=== PATIENT | female | born 1950 | race Caucasian/White ===

== ENCOUNTER 2020-08-20 10:39 | Outpatient (CLI) | payer MEDICARE, SELFPAY ==
--- NOTE | 2020-08-20 10:50 | MM_ITS ---
WS: [id number] DIAGNOSTIC BILATERAL DIGITAL MAMMOGRAM WITH CAD HISTORY: HX OF BREAST CA COMPARISON: 06/28/2019, 06/03/2017 and 08/07/2015 TECHNIQUE: Bilateral craniocaudad, mediolateral oblique, and mediolateral views are submitted. Comput er aided detection utilized. Breast composition: The breasts are heterogeneously dense, which may obscure small masses. Volume los s and diffuse trabecular thickening throughout the LEFT breast. There are benign dystrophic calcifica tions in each breast. As compared to several prior examinations there has been no change. No masses a re identified. No suspicious grouping of calcifications. MM/[place] [id number] IMPRESSION: BI-RADS: 2-Benign FOLLOW UP: 1 Year Follow-up
== END 2020-08-20 10:40 | disposition home or self-care (01) ==
LOC: RADSHAW 10:43
PROVIDERS: PCP Family Medicine; Visit Provider Family Medicine
DX: Z85.3 Personal history of malignant neoplasm of breast (principal)
CPT/HCPCS: 77066

== ENCOUNTER → 2020-08-26 10:40 | Outpatient (BNVA) | payer MEDICARE, SELFPAY | PROVIDERS: PCP Family Medicine; Visit Provider Internal Medicine Cardiovascular Disease | DX: I50.22 Chronic systolic (congestive) heart failure (principal); R06.02 Shortness of breath; E78.2 Mixed hyperlipidemia; I50.33 Acute on chronic diastolic (congestive) heart failure; E78.5 Hyperlipidemia, unspecified | CPT/HCPCS: 80048; 80061; 83880 ==

== ENCOUNTER → 2021-01-09 10:22 | Outpatient (BNVA) | payer MEDICARE, SELFPAY | PROVIDERS: PCP Family Medicine; Visit Provider Nurse Practitioner | DX: I42.0 Dilated cardiomyopathy (principal) | CPT/HCPCS: 84443 ==

== ENCOUNTER → 2022-01-22 09:12 | Outpatient (BNVA) | payer MEDICARE, SELFPAY | PROVIDERS: PCP Family Medicine; Visit Provider Nurse Practitioner | DX: E03.9 Hypothyroidism, unspecified (principal); E78.2 Mixed hyperlipidemia | CPT/HCPCS: 80053; 80061; 84443 ==

== ENCOUNTER 2022-01-26 11:30 | Outpatient (CLI) | payer MEDICARE, SELFPAY ==
--- NOTE | 2022-01-26 11:34 | MM_ITS ---
WS: [id number] DIAGNOSTIC BILATERAL 3D TOMOSYNTHESIS DIGITAL MAMMOGRAM WITH CAD HISTORY: HX OF BREAST CA COMPARISON: 08/20/2020 and 06/28/2019 TECHNIQUE: Bilateral craniocaudad, mediolateral oblique, and mediolateral views are submitted. Comput er aided detection utilized. Breast composition: There are scattered areas of fibroglandular density. Volume loss and diffuse trab ecular thickening throughout the LEFT breast is stable. Dystrophic coarse calcification at 12:00, pos terior LEFT breast. There are additional benign-appearing calcifications within each breast. No new a glendy of calcification or suspicious mass developing. Stable posttreatment changes in the LEFT breast. MM/[place] [id number] IMPRESSION: BI-RADS: 2-Benign FOLLOW UP: 1 Year Follow-up
== END 2022-01-26 11:31 | disposition home or self-care (01) ==
LOC: RAD 11:32
PROVIDERS: PCP Family Medicine; Visit Provider Nurse Practitioner
DX: Z85.3 Personal history of malignant neoplasm of breast (principal)
CPT/HCPCS: 77062

== ENCOUNTER → 2022-02-12 15:27 | Outpatient (BNVA) | payer MEDICARE, SELFPAY | PROVIDERS: PCP Family Medicine; Visit Provider Internal Medicine Cardiovascular Disease | DX: I42.0 Dilated cardiomyopathy (principal); I11.0 Hypertensive heart disease with heart failure; E78.2 Mixed hyperlipidemia; I34.0 Nonrheumatic mitral (valve) insufficiency; I50.22 Chronic systolic (congestive) heart failure; Z79.82 Long term (current) use of aspirin | CPT/HCPCS: 99214 ==

== ENCOUNTER 2022-03-10 08:41 | Outpatient (CLI) | payer MEDICARE, SELFPAY ==
--- NOTE | 2022-03-10 08:30 | USCV_ITS ---
Debbie Crespo Age: 71 Gender: F : 1950 Exam Date: 03/10/2022 09:09 Ordering Phys: Gianni Saul MD ([email or web address]) Technologist: Mo Aldana Exam Location: [facility] [place] Indication: cardiomyo BP: 116 / 65 HR: 56 Rhythm: Sinus Technical Quality: Adequate MEASUREMENTS (Male / Female) Normal Values 2D ECHO LV Diastolic Diameter PLAX 5.2 cm 4.2 - 5.9 / 3.9 - 5.3 cm LV Systolic Diameter PLAX 4.7 cm IVS Diastolic Thickness 1.1 cm 0.6 - 1.0 / 0.6 - 0.9 cm IVS Systolic Thickness 1.0 cm LVPW Diastolic Thickness 1.1 cm 0.6 - 1.0 / 0.6 - 0.9 cm LVPW Systolic Thickness 1.2 cm LVOT Diameter 2.1 cm LV Ejection Fraction 2D Teich 22.9 % LV Ejection Fraction MOD 2C 33.7 % LV Ejection Fraction 2C AL 34.7 % LA Diameter 4.1 cm Aorta at Sinotubular Diameter 2.5 cm M-MODE Aortic Annulus Diameter 3.2 cm LA Ao Ratio MM 1.3 MV E Point Septal Separation 2.4 cm DOPPLER AV Peak Velocity 140.0 cm/s LVOT Peak Velocity 92.0 cm/s AV Area Cont Eq vti 2.4 cm squared AV Area Cont Eq pk 2.2 cm squared MV Area PHT 5.0 cm squared Mitral E to A Ratio 3.0 MV E' Velocity 62.5 cm/s Mitral E to MV E' Ratio 11.8 Mitral E to LV E' Lateral Ratio 8.1 Mitral E to LV E' Septal Ratio 21.7 TR Peak Velocity 327.0 cm/s TR Peak Gradient 42.8 mmHg TV Peak E Velocity 151.0 cm/s Right Atrial Pressure 3.0 mmHg Pulmonary Artery Systolic Pressu 45.8 mmHg PV Peak Velocity 86.0 cm/s FINDINGS Left Ventricle Diffuse hypokinesia of the left ventricle with ejection fraction of 34% Mildly dilated LV cavity. Right Ventricle The right ventricle is normal in size and function. Right Atrium The right atrium is normal in size. Left Atrium Mildly increased left atrial size. Mitral Valve Moderately severe mitral valve regurgitation. Aortic Valve Tricuspid with no gross abnormalities Tricuspid Valve No gross abnormalities noted . Pulmonic Valve No gross abnormalities noted Pericardium Normal pericardium without effusion. Aorta Normal ascending aorta dimension. CONCLUSIONS Diffuse hypokinesia of the left ventricle with an ejection fraction of 34% Mildly dilated LV cavity. Moderately severe mitral valve regurgitation. No intracardiac masses or pericardial effusion. Compared to the study from 06/04/2016, there is worsening of the LV systolic function and the mitral valve regurgitation. Dr Gianni Saul MD [facility] (Electronically Signed) Final Date: 10 Mar 2022 16:19 S
== END 2022-03-10 08:42 | disposition home or self-care (01) ==
LOC: RAD 08:43
PROVIDERS: PCP Family Medicine; Visit Provider Internal Medicine Cardiovascular Disease
DX: I50.22 Chronic systolic (congestive) heart failure (principal); R06.00 Dyspnea, unspecified
CPT/HCPCS: 93306

== ENCOUNTER → 2022-05-13 12:46 | Outpatient (BNVA) | payer MEDICARE, SELFPAY | PROVIDERS: PCP Family Medicine; Visit Provider Internal Medicine Cardiovascular Disease | DX: I50.22 Chronic systolic (congestive) heart failure (principal); E78.2 Mixed hyperlipidemia; I34.0 Nonrheumatic mitral (valve) insufficiency; N18.2 Chronic kidney disease, stage 2 (mild); I42.0 Dilated cardiomyopathy; E03.9 Hypothyroidism, unspecified | CPT/HCPCS: 36415; 80048; 83880; 99214 ==

== ENCOUNTER → 2022-06-10 12:57 | Outpatient (BNVA) | payer MEDICARE, SELFPAY | PROVIDERS: PCP Family Medicine; Visit Provider Nurse Practitioner Family | DX: I50.22 Chronic systolic (congestive) heart failure (principal) | CPT/HCPCS: 99214 ==

== ENCOUNTER → 2022-08-19 15:13 | Outpatient (BNVA) | payer MEDICARE, SELFPAY | PROVIDERS: PCP Family Medicine; Visit Provider Internal Medicine Cardiovascular Disease | DX: I50.22 Chronic systolic (congestive) heart failure (principal); E78.2 Mixed hyperlipidemia; I34.0 Nonrheumatic mitral (valve) insufficiency; N18.2 Chronic kidney disease, stage 2 (mild); I42.0 Dilated cardiomyopathy; R06.02 Shortness of breath | CPT/HCPCS: 36415; 80048; 83880; 99214 ==

== ENCOUNTER 2022-09-23 09:54 | Outpatient (CLI) | payer MEDICARE, SELFPAY ==
--- NOTE | 2022-09-23 10:15 | USCV_ITS ---
Debbie Crespo Age: 72 Gender: F : 1950 Exam Date: 09/23/2022 10:59 Ordering Phys: Uma Roberts Technologist: AMBER Exam Location: [facility] – [place] Indication: LOW EF BP: 108 / 68 HR: 72 Rhythm: Sinus Technical Quality: Adequate MEASUREMENTS (Male / Female) Normal Values 2D ECHO LVOT Diameter 2.0 cm LV Ejection Fraction MOD 2C 30.2 % LV Ejection Fraction 2C AL 28.4 % LA Diameter 3.4 cm LA Width 3.7 cm LA Height 4.9 cm RA Width 2.9 cm RA Height 3.8 cm Aorta at Sinotubular Diameter 2.5 cm IVC Diameter 1.5 cm M-MODE Aortic Annulus Diameter 2.9 cm LA Ao Ratio MM 1.0 MV E Point Septal Separation 2.4 cm DOPPLER Right Atrial Pressure 8.0 mmHg FINDINGS Left Ventricle Severe diffuse hypokinesia of the left ventricle with an ejection fraction of 30%. Moderately dilated LV cavity Right Ventricle Normal RV size and ejection fraction Right Atrium Normal right atrial size. Left Atrium Moderately increased left atrial size. Small atrial septal aneurysm measuring 1.7 x 0.8 cm. Mitral Valve Minimally thickened mitral valve Aortic Valve No gross abnormalities noted Tricuspid Valve No gross abnormalities noted Pulmonic Valve No gross abnormalities noted Pericardium Normal pericardium without effusion. Aorta Normal ascending aorta dimension. IVC Normal inferior vena cava. CONCLUSIONS Severe diffuse hypokinesia of the left ventricle with an ejection fraction of 30%. Moderately dilated LV cavity. Moderately increased left atrial size. Small atrial septal aneurysm measuring 1.7 x 0.8 cm. Minimally thickened mitral valve There is no pericardial effusion. There are no intracardiac masses. Compared to the study from 03/10/2022 there is slight drop in the LV ejection fraction from 34% to 30% Dr Gianni Saul MD [facility] (Electronically Signed) Final Date: 24 September 2022 19:52 S
== END 2022-09-23 09:55 | disposition home or self-care (01) ==
LOC: RAD 09:55
PROVIDERS: PCP Family Medicine; Visit Provider Nurse Practitioner Family
DX: I42.9 Cardiomyopathy, unspecified (principal); I50.9 Heart failure, unspecified; I72.8 Aneurysm of other specified arteries; I05.9 Rheumatic mitral valve disease, unspecified
CPT/HCPCS: 93308

== ENCOUNTER → 2022-09-30 12:46 | Outpatient (BNVA) | payer MEDICARE, SELFPAY | PROVIDERS: PCP Family Medicine; Visit Provider Internal Medicine Cardiovascular Disease | DX: I44.7 Left bundle-branch block, unspecified (principal); I50.9 Heart failure, unspecified; R94.31 Abnormal electrocardiogram [ECG] [EKG] | CPT/HCPCS: 93005 ==

== ENCOUNTER → 2022-10-06 13:48 | Outpatient (BNVA) | payer MEDICARE, SELFPAY | PROVIDERS: PCP Family Medicine; Visit Provider Internal Medicine Cardiovascular Disease | DX: I13.0 Hypertensive heart and chronic kidney disease with heart failure and stage 1 through stage 4 chronic kidney disease, or unspecified chronic kidney disease (principal); N18.2 Chronic kidney disease, stage 2 (mild); I50.22 Chronic systolic (congestive) heart failure; E78.2 Mixed hyperlipidemia; I34.0 Nonrheumatic mitral (valve) insufficiency; I42.0 Dilated cardiomyopathy; E03.9 Hypothyroidism, unspecified | CPT/HCPCS: 99214 ==

== ENCOUNTER 2023-02-23 12:34 | Outpatient (CLI) | payer MEDICARE, SELFPAY ==
--- NOTE | 2023-02-23 13:00 | USCV_ITS ---
Debbie Crespo Age: 72 Gender: F : 1950 Exam Date: 02/23/2023 12:59 Ordering Phys: Gianni Saul MD ([email or web address]) Technologist: Mo Aldana Exam Location: [facility] [place] Indication: HIGH RISK MEDS BP: 95 / 50 HR: 96 Rhythm: Sinus Technical Quality: Adequate MEASUREMENTS (Male / Female) Normal Values 2D ECHO LV Diastolic Diameter PLAX 4.8 cm 4.2 - 5.9 / 3.9 - 5.3 cm LV Systolic Diameter PLAX 4.2 cm IVS Diastolic Thickness 1.1 cm 0.6 - 1.0 / 0.6 - 0.9 cm IVS Systolic Thickness 1.1 cm LVPW Diastolic Thickness 1.1 cm 0.6 - 1.0 / 0.6 - 0.9 cm LVPW Systolic Thickness 1.2 cm LV Ejection Fraction 2D Teich 26.7 % LV Ejection Fraction MOD 2C 22.4 % LV Ejection Fraction 2C AL 22.5 % LA Diameter 4.4 cm M-MODE Aortic Annulus Diameter 3.1 cm LA Ao Ratio MM 1.5 MV E Point Septal Separation 1.6 cm FINDINGS Left Ventricle Severe diffuse hypokinesia left-ventricular with an ejection fraction of 30%. Moderately dilated LV cavity. Right Ventricle Normal right ventricular size and systolic function. Right Atrium Normal right atrial size. Left Atrium Mildly increased left atrial size. There is an atrial septal aneurysm measuring 1.9 x 1.5 cm. Mitral Valve No gross abnormalities noted Aortic Valve Thickened aortic valve. Tricuspid Valve No gross abnormalities noted Pulmonic Valve No gross abnormalities noted Pericardium No pericardial effusion. Aorta Normal aortic annulus size. IVC Inferior vena cava not visualized. CONCLUSIONS Severe diffuse hypokinesia left-ventricular with an ejection fraction of 30 %. Moderately dilated LV cavity. Mildly increased left atrial size. There is an atrial septal aneurysm measuring 1.9 x 1.5 cm. Normal right atrial size. Normal right ventricular size and systolic function. Compared to the study from 09/23/2022, there may not be a significant change Dr Gianni Saul MD [facility] (Electronically Signed) Final Date: 25 February 2023 09:58 S
== END 2023-02-23 12:35 | disposition home or self-care (01) ==
LOC: RAD 12:37
PROVIDERS: PCP Family Medicine; Visit Provider Internal Medicine Cardiovascular Disease
DX: I34.0 Nonrheumatic mitral (valve) insufficiency (principal); I42.0 Dilated cardiomyopathy; I50.22 Chronic systolic (congestive) heart failure
CPT/HCPCS: 93308

== ENCOUNTER → 2023-02-25 15:03 | Outpatient (BNVA) | payer MEDICARE, SELFPAY | PROVIDERS: PCP Family Medicine; Visit Provider Internal Medicine Cardiovascular Disease | DX: I42.0 Dilated cardiomyopathy (principal); I50.22 Chronic systolic (congestive) heart failure; E78.2 Mixed hyperlipidemia; I34.0 Nonrheumatic mitral (valve) insufficiency; N18.2 Chronic kidney disease, stage 2 (mild) | CPT/HCPCS: 93005; 99214 ==

== ENCOUNTER → 2023-06-21 15:25 | Outpatient (BNVA) | payer MEDICARE, SELFPAY | PROVIDERS: PCP Family Medicine; Visit Provider Nurse Practitioner | DX: R19.7 Diarrhea, unspecified (principal) | CPT/HCPCS: 80053; 84443; 85025 ==

== ENCOUNTER → 2023-06-24 07:47 | Outpatient (BNVA) | payer MEDICARE, SELFPAY | PROVIDERS: PCP Family Medicine; Visit Provider Nurse Practitioner | DX: R19.7 Diarrhea, unspecified (principal) | CPT/HCPCS: 83630; 87493; 87506 ==

== ENCOUNTER → 2023-09-09 15:04 | Outpatient (BNVA) | payer MEDICARE, SELFPAY | PROVIDERS: PCP Family Medicine; Visit Provider Internal Medicine Cardiovascular Disease | DX: I42.0 Dilated cardiomyopathy (principal); I50.22 Chronic systolic (congestive) heart failure; E78.2 Mixed hyperlipidemia; I34.0 Nonrheumatic mitral (valve) insufficiency; N18.2 Chronic kidney disease, stage 2 (mild); Z95.810 Presence of automatic (implantable) cardiac defibrillator | CPT/HCPCS: 99214 ==

== ENCOUNTER 2023-12-31 09:46 | Outpatient (CLI) | payer MEDICARE, SELFPAY ==
--- NOTE | 2023-12-31 10:15 | USCV_ITS ---
Debbie Crespo Age: 73 Gender: F : 1950 Exam Date: 12/31/2023 10:17 Ordering Phys: Gianni Saul MD ([email or web address]) Technologist: RASHAD [place] [facility] [place]: hyperlipidemia BP: 110 / 71 HR: Rhythm: Sinus Technical Quality: Adequate MEASUREMENTS (Male / Female) Normal Values 2D ECHO LVOT Diameter 2.0 cm LV Ejection Fraction MOD 2C 37.6 % LV Ejection Fraction 2C AL 0.0 % LA Diameter 3.7 cm Aorta at Sinotubular Diameter 2.9 cm IVC Diameter 1.5 cm M-MODE LA Ao Ratio MM 1.4 AV Cusp Separation MM 1.5 cm DOPPLER AV Peak Velocity 130.0 cm/s LVOT Peak Velocity 67.0 cm/s AV Area Cont Eq vti 1.5 cm squared AV Area Cont Eq pk 1.6 cm squared MV Peak Velocity 90.0 cm/s MV Area PHT 4.0 cm squared Mitral E to A Ratio 1.2 TV Peak Velocity 247.7 cm/s TR Peak Velocity 263.0 cm/s TR Peak Gradient 27.7 mmHg TR Mean Velocity 198.0 cm/s TR Mean Gradient 17.1 mmHg TR Velocity Time Integral 90.5 cm FINDINGS Left Ventricle Moderately dilated LV cavity. Diffuse hypokinesis of the left- ventricle. LV ejection fraction around 29% Right Ventricle Pacemaker/defibrillator wire Right Atrium Pacemaker/defibrillator wire Left Atrium Moderately dilated left atrium. Atrial septal aneurysm is present, 1.8 x 1.1 cm size Mitral Valve Moderate mitral valve regurgitation. Aortic Valve No gross abnormalities noted Tricuspid Valve No gross abnormalities noted Pulmonic Valve No gross abnormalities noted Pericardium No pericardial effusion. Aorta Normal aortic annulus size. IVC Normal inferior vena cava. CONCLUSIONS Moderately dilated LV cavity. Diffuse hypokinesis of the left- ventricle. LV ejection fraction around 29%. Moderately dilated left atrium. Moderate mitral valve regurgitation. Pacemaker/defibrillator wire in the right atrium and right ventricle There is no pericardial effusion. There are no intracardiac masses. Atrial septal aneurysm measuring 1.8 x 1.1 cm Compared to the study from 02/23/2023 there may not be significant change Dr Gianni Saul MD [facility] (Electronically Signed) Final Date: 01 January 2024 14:28 S
== END 2023-12-31 09:47 | disposition home or self-care (01) ==
PROVIDERS: PCP Family Medicine; Visit Provider Internal Medicine Cardiovascular Disease
DX: E78.2 Mixed hyperlipidemia (principal); I42.0 Dilated cardiomyopathy; I34.0 Nonrheumatic mitral (valve) insufficiency; I50.22 Chronic systolic (congestive) heart failure
CPT/HCPCS: 93306

== ENCOUNTER → 2024-02-01 09:05 | Outpatient (BNVA) | payer MEDICARE, SELFPAY | PROVIDERS: PCP Family Medicine; Visit Provider Nurse Practitioner Family | DX: I50.22 Chronic systolic (congestive) heart failure (principal) | CPT/HCPCS: 99213 ==

== ENCOUNTER → 2024-03-20 15:25 | Outpatient (BNVA) | payer MEDICARE, SELFPAY | PROVIDERS: PCP Family Medicine; Visit Provider Internal Medicine Cardiovascular Disease | DX: E03.9 Hypothyroidism, unspecified (principal); N18.9 Chronic kidney disease, unspecified; R53.1 Weakness; R06.02 Shortness of breath | CPT/HCPCS: 36415; 80053; 83880; 84443; 99214 ==

== ENCOUNTER 2024-07-05 09:40 | Outpatient (CLI) | payer MEDICARE, SELFPAY ==
--- NOTE | 2024-07-05 10:00 | MM_ITS ---
WS: [id number] VIEWS: MLO, CC, and ML views both breasts. 3D digital tomosynthesis is also included in this exam. C omparisons. 09/19/2009, 07/25/2012, 08/07/2015, 06/03/2017, 06/28/2019, 08/20/2020, 01/26/2022,. Findings: There was no sign of mass, architectural distortion or suspicious calcification in either breast. Pos t radiation changes in the LEFT breast. The breasts are heterogeneously dense which may obscure small masses MM/[place] [id number] Impression: BI-RADS: 2-Benign FOLLOW-UP: 1 Year Follow-up This mammogram was also analyzed by the Computer Aided Detection System R2 Imag e [employer] Technician.
== END 2024-07-05 09:41 | disposition home or self-care (01) ==
LOC: RAD 09:40
PROVIDERS: PCP Family Medicine; Visit Provider Clinical Nurse Specialist Adult Health
DX: Z85.3 Personal history of malignant neoplasm of breast (principal); R92.333 Mammographic heterogeneous density, bilateral breasts
CPT/HCPCS: 77062; G0279

== ENCOUNTER 2024-09-24 13:43 | Emergency (ER) | payer MEDICARE, SELFPAY ==
--- NOTE | 2024-09-24 13:44 | XRR_ITS ---
PROCEDURE INFORMATION: Exam: XR Chest Exam date and time: 09/24/2024 3:28 PM Age: 74 years old Clinical indication: Shortness of breath; Prior surgery; Surgery date: 6+ months; Surgery type: Lumpectomy; Patient HX: C/O cough and fever that started last noc. PT reports that her is currently on med surg with covid. PT reports cardiac HX and wanted to get checked out before symptoms got worse. ; Additional info: SOB TECHNIQUE: Imaging protocol: Radiologic exam of the chest. Views: 1 view. COMPARISON: No relevant prior studies available. FINDINGS: Tubes, catheters and devices: Multi lead pacemaker/defibrillator. Lungs: Unremarkable. No consolidation. Pleural spaces: Unremarkable. No pleural effusion. No pneumothorax. Heart/Mediastinum: Unremarkable. No cardiomegaly. Bones/joints: Unremarkable. XR/XR chest 1V portable [id number] IMPRESSION: No acute findings.
[2024-09-24 14:04] VITALS: BP 113/71; PULSE 123; RESP 18; TEMP 37.8; O2SAT 94
[2024-09-24 14:46] LABS: Influenza A NEGATIVE (Negative); Influenza B NEGATIVE (Negative); Respiratory Syncytial Virus Ce NEGATIVE (Negative)
[2024-09-24 14:56] LABS: Covid PCR Positive (Negative)
[2024-09-24 15:09] LABS: Basophils % 0.3 %; Eosinophils # 0.1 10^3/uL (0.0-0.8); Eosinophils % 0.5 %; Hematocrit 42.2 % (36-47); Mean Corpuscular Volume 93.8 fl (85-98); Mean Platelet Volume 9.3 fL (7.4-10.4); Monocytes % 9.7 %; Neutrophils # 7.75 10^3/uL (1.8-7.7); Neutrophils % 79.3 %; Nucleated Red Blood Cells % 0 %; Platelet Count 232 10^3/cmm (157-399); Red Cell Distribution Width 13.6 % (12.1-15.1); White Blood Count 9.78 10^3/uL (3.29-11.43)
[2024-09-24] MEDS: acetaminophen 500 mg Tablet 1000 MG PO (15:17)
[2024-09-24 15:28] LABS: Alanine Aminotransferase 12 U/L (0-33); Albumin Level 4.1 g/dL (3.5-5.2); Alkaline Phosphatase 71 U/L (35-105); Anion Gap 16.9 (5-19); Aspartate Amino Transferase 19 U/L (0-32); Blood Urea Nitrogen 21 mg/dL (8-23); Calcium 9.3 mg/dL (8.5-10.5); Carbon Dioxide 24 mmol/L (22-29); Chloride 101 mmol/L (98-107); Creatinine Clr Calc Pharmacy 33.5294; Globulin 3.4 g/dL (1.3-4.6); Glucose 119 mg/dL (65-115); Osmolality Calculated 290 mOsm/kg (285-295); Potassium 3.9 mmol/L (3.5-5.1); Sodium 138 mmol/L (136-145); Total Bilirubin 0.4 mg/dL (0.15-1.2); Total Protein 7.5 g/dL (6.6-8.7)
[2024-09-24 15:56] VITALS: BP 99/53; PULSE 106; RESP 16; O2SAT 92
[2024-09-24 16:16] VITALS: BP 101/53; PULSE 108; RESP 16; O2SAT 91
--- NOTE | 2024-09-24 17:00 | ED_ITS ---
HPI - URI/Sore Throat 2 General: Chief Complaint: Upper Respiratory Infection Stated Complaint: covid symptoms Time Seen by Provider: 09/24/24 15:08 History of Present Illness: This patient is a 74-year-old white female who presents to the emergency department with cough, fever and congestion that started last night. Patient states her is just recently been hospitalized for COVID. He is on chemotherapy. This patient has a history of coronary artery disease, congestive heart failure and chronic kidney disease. Associated symptoms: Reports fever(s) and nasal congestion Related Data Home Medications Medication Instructions Recorded Confirmed cholecalciferol (vitamin D3) 50 50 mcg PO DAILY 08/26/20 03/20/24 mcg (2,000 unit) capsule multivitamin (Multiple Vitamins 1 tab PO DAILY 08/26/20 03/20/24 tablet) Previous Rx's Medication Instructions Recorded aspirin 81 mg tablet,delayed 81 mg PO DAILY #90 tabs 12/10/23 release (Adult Low Dose Aspirin) pravastatin 20 mg tablet 20 mg PO DAILY #90 tabs 12/10/23 carvedilol 6.25 mg tablet 6.25 mg PO BID #180 tabs 02/18/24 sacubitril 49 mg-valsartan 51 mg 1 tab PO BID 30 days #180 tabs 03/10/24 tablet (Entresto) levothyroxine 25 mcg tablet 25 mcg PO DAILY 30 days #90 tabs 03/21/24 (Synthroid) furosemide 20 mg tablet See Rx Instructions .Route 05/29/24 .COMPLEX #90 tabs empagliflozin 10 mg tablet See Rx Instructions .Route 09/13/24 (Jardiance) .COMPLEX #90 tabs Allergies Allergy/AdvReac Type Severity Reaction Status Date / Time codeine Allergy chest pain Verified 09/24/24 14:08 Review of Systems 2 General: Reports: 10 or more systems reviewed and unremarkable except in HPI and below Const: Reports: fever(s) ENMT: Reports: nasal congestion Resp: Reports: non-productive cough PFSH ED 2 PFSH: Medical History (Updated 09/24/24 @ 15:57 by Sarthak Andres MD) ICD (implantable cardioverter-defibrillator) in place Osteopenia History of breast cancer CHF (congestive heart failure) Hyperlipidemia Mitral regurgitation CKD (chronic kidney disease) Cardiomyopathy Surgical History History of colonoscopy April, H/O lumpectomy H/O tubal ligation Family History Father CAD (coronary artery disease) Grandmother Cancer Mother Dementia Stroke Denies family history of Diabetes Clotting disorder Chronic kidney disease (CKD) Suicide Anesthesia complication Bleeding disorder Lung disease Social History Smoking and tobacco/nicotine status: never used tobacco/nicotine Second hand smoke exposure: No Alcohol intake: never Substance/Drug Use: never Adopted: No Caregiver/support person: No Lives independently: Yes Household members: spouse Housing: House Marital status: Number of children: 2 service: No Current occupational status: retired Do you think of yourself as: Straight/Heterosexual Current gender identity: Female Physical Exam 2 Const: COMMON NORMALS: no acute distress, patient oriented x3 and no limitations GENERAL APPEARANCE: cooperative and comfortable HENMT: COMMON NORMALS: normocephalic, atraumatic, moist oral mucous membranes and oropharynx normal HEAD & SCALP: normal to inspection, normocephalic and atraumatic FACE & SINUS: normal facial exam NOSE: Nasal discharge present Eye: COMMON NORMALS: Equal, round and reactive pupils present, EOMs intact bilaterally and conjunctivae normal GENERAL EYE: appearance normal, both eyes and all related structures CONJUNCTIVA: Yes conjunctivae normal PUPIL: Yes Equal, round and reactive pupils present Neck/C-Spine: COMMON NORMALS: supple and no JVD Chest: COMMONS NORMALS: normal inspection of the chest Resp: COMMON NORMALS: normal respiratory effort and clear to auscultation bilaterally AUSCULTATION: clear to auscultation bilaterally Cardio: COMMON NORMALS: no JVD, regular rate, regular rhythm, No gallops present (Cardio), No murmurs present (Cardio) and No rub (Cardio) RATE: r egular rate RHYTHM: regular rhythm GI: COMMON NORMALS: Normal to inspection, nondistended, normoactive bowel sounds present, Soft to palpation and non-tender AUSCULTATION: Yes normoactive bowel sounds PALPATION: Yes Soft to palpation : COMMON NORMALS: Yes no CVA tenderness BLADDER/KIDNEY EXAM: Yes no CVA tenderness Back/Pelvis: COMMON NORMALS: no CVA tenderness and thoracic and lumbar spine normal to inspection Extremity: COMMON NORMALS: normal to inspection Neuro: COMMON NORMALS: patient oriented x3 and CN's II-XII intact bilaterally Psych: COMMON NORMALS: mental status grossly normal, Normal thought process present and cooperative THOUGHT PROCESS: Normal thought process present Skin: COMMON NORMALS: no rashes or lesions noted, turgor normal and no jaundice GENERAL SKIN EXAM: no rashes or lesions noted and turgor normal Course 2 Vital Signs: Vital signs: Vital Signs Temperature 100.0 F H 09/24/24 14:04 Pulse Rate 108 H 09/24/24 16:16 Respiratory Rate 16 09/24/24 16:16 Blood Pressure 101/53 09/24/24 16:16 Pulse Oximetry 91 09/24/24 16:16 Oxygen Delivery Me thod Room Air 09/24/24 15:56 MDM - URI/Sore Throat Medical Decision Making Patient tested positive for COVID. Influenza and RSV negative. CBC and CMP normal. Chest x-ray normal. Patient was instructed to take Tylenol and/or ibuprofen for fever, aches and pains. Push fluids get some rest. Robitussin DM for the cough. Follow-up with primary care physician as needed. She was discharged in stable condition. Lab Data 09/24/24 15:05 09/24/24 15:05 Laboratory Results WBC 9.78 10^3/uL (3.29-11.43) 09/24/24 15:05 RBC 4.50 10^6/uL (3.85-5.65) 09/24/24 15:05 Hgb 13.50 g/dL (11.27-16.99) 09/24/24 15:05 Hct 42.2 % (36-47) 09/24/24 15:05 MCV 93.8 fl (85-98) 09/24/24 15:05 MCH 30.0 pg (27-33) 09/24/24 15:05 MCHC 32.0 g/dL (30-55) 09/24/24 15:05 RDW 13.6 % (12.1-15.1) 09/24/24 15:05 Plt Count 232 10^3/cmm (157-399) 09/24/24 15:05 MPV 9.3 fL (7.4-10.4) 09/24/24 15:05 Neut % (Auto) 79.3 % 09/24/24 15:05 Lymph % (Auto) 10.0 % 09/24/24 15:05 Isabela % (Auto) 9.7 % 09/24/24 15:05 Eos % (Auto) 0.5 % 09/24/24 15:05 Baso % (Auto) 0.3 % 09/24/24 15:05 Neut # (Auto) 7.75 10^3/uL (1.8-7.7) H 09/24/24 15:05 Lymph # (Auto) 1.0 10^3/uL (0.8-4.8) 09/24/24 15:05 Isabela # (Auto) 1.0 10^3/uL (0.2-0.9) H 09/24/24 15:05 Eos # (Auto) 0.1 10^3/uL (0.0-0.8) 09/24/24 15:05 Baso # (Auto) 0.0 10^3/uL (0.0-0.1) 09/24/24 15:05 Nucleated RBC % (auto) 0 % 09/24/24 15:05 Nucleated RBCs # 0.0 /100WBC 09/24/24 15:05 Sodium 138 mmol/L (136-145) 09/24/24 15:05 Potassium 3.9 mmol/L (3.5-5.1) 09/24/24 15:05 Chloride 101 mmol/L (98-107) 09/24/24 15:05 Carbon Dioxide 24 mmol/L (22-29) 09/24/24 15:05 Anion Gap 16.9 (5-19) 09/24/24 15:05 BUN 21 mg/dL (8-23) 09/24/24 15:05 Creatinine 1.3 mg/dL (0.5-0.9) H 09/24/24 15:05 GFR Calculation Not Reportable 09/24/24 15:05 Glucose 119 mg/dL (65-115) H 09/24/24 15:05 Calculated Osmolality 290 mOsm/kg (285-295) 09/24/24 15:05 Calcium 9.3 mg/dL (8.5-10.5) 09/24/24 15:05 Total Bilirubin 0.4 mg/dL (0.15-1.2) 09/24/24 15:05 AST 19 U/L (0-32) 09/24/24 15:05 ALT 12 U/L (0-33) 09/24/24 15:05 Alkaline Phosphatase 71 U/L (35-105) 09/24/24 15:05 Total Protein 7.5 g/dL (6.6-8.7) 09/24/24 15:05 Albumin 4.1 g/dL (3.5-5.2) 09/24/24 15:05 Globulin 3.4 g/dL (1.3-4.6) 09/24/24 15:05 Coronavirus (PCR) Positive (Negative) A 09/24/24 13:57 Influenza A (PCR) Negative (Negative) 09/24/24 13:57 Influenza Type B (PCR) Negative (Negative) 09/24/24 13:57 RSV (PCR) Negative (Negative) 09/24/24 13:57 All radiology interpretation(s) finalized by discharge Discharge Plan Discharge Patient Disposition: Home Clinical Impression: COVID Condition: Stable Prescriptions: No Action cholecalciferol (vitamin D3) 50 mcg (2,000 unit) capsule 50 mcg PO DAILY multivitamin [Multiple Vitamins] Tablet 1 tab PO DAILY aspirin [Adult Low Dose Aspirin] 81 mg tablet,delayed release (DR/EC) 81 mg PO DAILY Qty: 90 3RF pravastatin 20 mg tablet 20 mg PO DAILY Qty: 90 3RF carvedilol 6.25 mg tablet 6.25 mg PO BID Qty: 180 2RF Entresto 49-51 mg tablet 1 tab PO BID 30 Days Qty: 180 3RF levothyroxine [Synthroid] 25 mcg tablet 25 mcg PO DAILY 30 Days Qty: 90 3RF furosemide 20 mg tablet See Rx Instructions .ROUTE .COMPLEX Qty: 90 3RF Dose Instruction: TAKE 1 TABLET DAILY Rx Instructions: TAKE 1 TABLET DAILY Jardiance 10 mg tablet See Rx Instructions .ROUTE .COMPLEX Qty: 90 3RF Dose Instruction: TAKE 1 TABLET DAILY Rx Instructions: TAKE 1 TABLET DAILY Discharge Orders: Discharge ED (Routine); Ordered 09/24/24 Ordered By: Sarthak Andres Referrals: Addy Garces DO [Primary Care Provider] - Coding Level of Care Code ED Mat Weaver for Chg Gelacio
== END 2024-09-24 16:14 | disposition home or self-care (01) ==
PROVIDERS: Emergency Medicine; Emergency Provider Emergency Medicine; PCP Family Medicine
DX: U07.1 COVID-19 (principal); Z11.52 Encounter for screening for COVID-19; Z79.82 Long term (current) use of aspirin; Z85.3 Personal history of malignant neoplasm of breast; N18.9 Chronic kidney disease, unspecified; I50.9 Heart failure, unspecified; Z95.810 Presence of automatic (implantable) cardiac defibrillator; E78.5 Hyperlipidemia, unspecified
CPT/HCPCS: 0241U; 36415; 71045; 80053; 85025; 99284

== ENCOUNTER → 2024-10-09 09:55 | Outpatient (BNVA) | payer MEDICARE, SELFPAY | PROVIDERS: PCP Family Medicine; Visit Provider Internal Medicine Cardiovascular Disease | DX: I42.0 Dilated cardiomyopathy (principal); I34.0 Nonrheumatic mitral (valve) insufficiency; E78.2 Mixed hyperlipidemia; I50.22 Chronic systolic (congestive) heart failure; Z95.810 Presence of automatic (implantable) cardiac defibrillator | CPT/HCPCS: 99214 ==

== ENCOUNTER → 2025-04-10 10:56 | Outpatient (BNVA) | payer MEDICARE, SELFPAY | PROVIDERS: PCP Family Medicine; Visit Provider Nurse Practitioner Family | DX: I13.0 Hypertensive heart and chronic kidney disease with heart failure and stage 1 through stage 4 chronic kidney disease, or unspecified chronic kidney disease (principal); N18.9 Chronic kidney disease, unspecified; I50.9 Heart failure, unspecified; I42.0 Dilated cardiomyopathy; I34.0 Nonrheumatic mitral (valve) insufficiency; E78.2 Mixed hyperlipidemia; Z95.810 Presence of automatic (implantable) cardiac defibrillator | CPT/HCPCS: 99214 ==

== ENCOUNTER → 2025-08-07 08:25 | Outpatient (BNVA) | payer MEDICARE, SELFPAY | PROVIDERS: PCP Family Medicine; Visit Provider Internal Medicine Cardiovascular Disease | DX: E03.8 Other specified hypothyroidism (principal) | CPT/HCPCS: 84443 ==

== ENCOUNTER 2025-09-05 10:21 | Outpatient (CLI) | payer MEDICARE, SELFPAY ==
--- NOTE | 2025-09-05 10:30 | MM_ITS ---
WS: [id number] DIAGNOSTIC BILATERAL DIGITAL BREAST TOMOSYNTHESIS MAMMOGRAPHY WITH CAD HISTORY: History of breast cancer. COMPARISON: 07/05/2024, 01/26/2022, 08/20/2020 TECHNIQUE: Bilateral craniocaudad, mediolateral oblique, and mediolateral views are submitted with tomosynthesis and SM. Computer aided detection utilized. Breast composition: The breasts are heterogeneously dense, which may obscure small masses. Volume loss in the LEFT breast from prior surgery. Increased trabecular thickening and skin thickening throughout the LEFT breast. Benign calcifications. Dense coarse calcification at 12:00. Numerous calcifications are benign and scattered throughout the RIGHT breast. No new mass or calcification. MM/MM diag BI tomosynthesis [id number] IMPRESSION: BI-RADS: 2 - Benign FOLLOW UP: 1 Year Follow-up
== END 2025-09-05 10:22 | disposition home or self-care (01) ==
LOC: RAD 10:24
PROVIDERS: PCP Family Medicine; Visit Provider Family Medicine
DX: Z12.31 Encounter for screening mammogram for malignant neoplasm of breast (principal); Z85.3 Personal history of malignant neoplasm of breast; R92.333 Mammographic heterogeneous density, bilateral breasts; R92.1 Mammographic calcification found on diagnostic imaging of breast; N64.2 Atrophy of breast; N64.89 Other specified disorders of breast
CPT/HCPCS: 77062; G0279

== ENCOUNTER → 2025-09-26 11:31 | Outpatient (BNVA) | payer MEDICARE, SELFPAY | PROVIDERS: PCP Family Medicine; Visit Provider Internal Medicine Cardiovascular Disease | DX: Z45.02 Encounter for adjustment and management of automatic implantable cardiac defibrillator (principal) | CPT/HCPCS: 93296 ==

== ENCOUNTER → 2025-10-18 12:44 | Outpatient (BNVA) | payer MEDICARE, SELFPAY | PROVIDERS: PCP Family Medicine; Visit Provider Family Medicine | DX: Z00.00 Encounter for general adult medical examination without abnormal findings (principal); I42.0 Dilated cardiomyopathy; E03.9 Hypothyroidism, unspecified; I50.22 Chronic systolic (congestive) heart failure; R73.09 Other abnormal glucose; N18.2 Chronic kidney disease, stage 2 (mild) | CPT/HCPCS: 80053; 80061; 83036; 84443; 85025 ==